=== PATIENT | female | born 1985 | race Caucasian/White ===

== ENCOUNTER 2016-12-20 11:48 | Emergency (ER) | payer SELFPAY ==
[~2016-12-20] VITALS: Ht 160 cm; Wt 52.2 kg
[~2016-12-20 11:48] MED LIST: AMOXICILLIN500 MG PO; ANAPROX DS550 MG PO; BACTRIM DS 8001 TA1 PO; CEPHALEXIN500 M1 PO; CIPROFLOXACIN500 MG PO; DIFLUCAN150 MG PO; FLEXERIL5 MG PO; HYDROCODONE BIT1 T11 PO; KEFLEX500 MG PO; MOTRIN800 MG PO; NAPROSYN500 MG PO; NKHM; NKHM PO; PYRIDIUM200 MG PO; ROBAXIN750 MG PO; TRAMADOL HCL50 MG PO; VIBRAMYCIN100 MG PO; VICODIN ES 7501 TAB PO; VOLTAREN50 M1 PO
[2016-12-20] MEDS ORDERED: MACROBID100 M1 PO (12:27)
[2016-12-20 12:36] LABS: BILIRUBIN NEGATIVE (NEGATIVE); BLOOD 1+ (NEGATIVE); CLARITY SL CLOUDY (CLEAR); COLOR YELLOW (YELLOW); GLUCOSE NEGATIVE (NEGATIVE); KETONE NEGATIVE (NEGATIVE); LEUKO ESTERASE NEGATIVE (NEGATIVE); NITRITE NEGATIVE (NEGATIVE); SPECIFIC GRAVITY >= 1.030 (1.005-1.030); UROBILINOGEN 0.2 E.U./dl (0.2-1.0)
[2016-12-20 12:47] LABS: BACTERIA TRACE; MUCOUS 2+; RBC 0-2 rbc/hpf (0-2); WBC 0-2 wbc/hpf (0-5)
== END 2016-12-20 12:42 | disposition home or self-care (01) ==
LOC: ED 11:48
PROVIDERS: Emergency Medicine
DX: N39.0 Urinary tract infection, site not specified (principal); F17.200 Nicotine dependence, unspecified, uncomplicated; Z88.1 Allergy status to other antibiotic agents; Z88.8 Allergy status to other drugs, medicaments and biological substances

== ENCOUNTER 2020-10-22 18:20 | Emergency (ER) | payer OTHER ==
[~2020-10-22] VITALS: Ht 160 cm; Wt 59.0 kg
[~2020-10-22 18:20] MED LIST changes: +MACROBID100 M1 PO
[2020-10-22] MEDS ORDERED: ELIMITE 5%60 GM T (19:28)
[2020-10-22] MEDS ORDERED: PREDNISONE20 M1 PO (19:28)
== END 2020-10-22 19:53 | disposition home or self-care (01) ==
LOC: ED 18:20
DX: R21 Rash and other nonspecific skin eruption (principal); Z88.1 Allergy status to other antibiotic agents

== ENCOUNTER 2020-11-14 18:06 | Emergency (ER) | payer OTHER ==
[~2020-11-14] VITALS: Ht 160 cm; Wt 59.0 kg
[~2020-11-14 18:06] MED LIST changes: +ELIMITE 5%60 GM T; +PREDNISONE20 M1 PO
== END 2020-11-14 20:08 | disposition left against medical advice (07) ==
LOC: ED 18:06
DX: J02.9 Acute pharyngitis, unspecified (principal); Z53.21 Procedure and treatment not carried out due to patient leaving prior to being seen by health care provider; H92.09 Otalgia, unspecified ear